=== PATIENT | female | born 1965 | race African-American/Black ===

== ENCOUNTER 2018-02-04 17:33 | Emergency (ER) | payer MEDICAID ==
[~2018-02-04] VITALS: Ht 165.1 cm; Wt 70.3 kg
[2018-02-04 17:38] VITALS: BP_SYST 153
--- NOTE | 2018-02-04 17:43 | NUR ---
Patient triaged and placed in waiting room. VSS and patient appears in no acute distress at this time. Accompanied by mother, awaiting available bed, and MD notified of need for MSE.
--- NOTE | 2018-02-04 18:25 | NUR ---
Pt AAOx4 ambulated into ED c/o 07/10 pain to R face r/t abscess under R eye x 1 week. Purulent discharge present. Pt was seen by PMD who suggested she go to ED. Pt took ibuprofen with no relief. No other injuries/complaints per pt/noted. Will continue to monitor.
--- NOTE | 2018-02-04 18:25 | NUR ---
Patient to ER bed 2 to gown for evaluation. Side rails up. Report given to Laron GUDINO.
--- NOTE | 2018-02-04 18:26 | NUR ---
Lucas [employer] ANALYST at bedside examining patient.
[2018-02-04] MEDS ORDERED: LIDOCAINE 1% 10 MG/ML, 20 ML MDV INJ ONE (18:30)
[2018-02-04] MEDS ORDERED: CLINDAMYCIN PHOSPHATE 300 MG/2 ML VIAL IM ONE (18:30)
[2018-02-04] MEDS ORDERED: IBUPROFEN 800 MG TABLET PO ONE (19:15)
[2018-02-04 19:24] VITALS: BP_SYST 146
--- NOTE | 2018-02-04 19:24 | NUR ---
Patient given written and verbal discharge instructions and verbalizes understanding. ER MD discussed with patient the results and treatment provided. Patient in stable condition. ID arm band removed. Rx of Motrin and Clindamycin given. Patient educated on pain management and to follow up with PMD. Pain Scale 2/10 tolerable to patient. Opportunity for questions provided and answered. Medication side effect fact sheet provided.
== END 2018-02-04 19:24 | disposition home or self-care (01) ==
LOC: SED 17:33
DX: H04.321 Acute dacryocystitis of right lacrimal passage (principal); R03.0 Elevated blood-pressure reading, without diagnosis of hypertension; F17.200 Nicotine dependence, unspecified, uncomplicated; Z88.1 Allergy status to other antibiotic agents; Z98.84 Bariatric surgery status
CPT/HCPCS: 96372; 99283; J2001; J3490